=== PATIENT | male | born 1930 | race Caucasian/White ===

== ENCOUNTER 2017-04-03 11:22 | Inpatient (IN) | payer OTHER ==
[~2017-04-03] VITALS: Ht 177.8 cm; Wt 73.4 kg
[~2017-04-03 11:22] MED LIST: Coumadin Daily Dose PO; ENDOCET 5-3251 EACH PO; Lutein PO; Xalatan 0.005% Ophth BOTH EYES
[2017-04-03 11:48] LABS: HEMATOCRIT 44.7 % (38.0-50.0); HEMOGLOBIN 15.5 G/DL (12.5-16.6); MCH 30.3 PG (29.0-34.0); MCHC 34.7 G/DL (30.0-36.0); MCV 87.3 FL (86-99); PLATELET COUNT 147 K/uL (156-360); RBC DIS.WIDTH-CV 12.6 % (11.8-14.6); RBC DIS.WIDTH-SD 40.4 % (39-53); RED BLOOD COUNT 5.12 M/uL (4.00-5.50); WHITE BLOOD COUNT 6.5 K/uL (4.1-10.2)
[2017-04-03 11:55] LABS: INTER. NORMALIZED RATIO 1.1
[2017-04-03 11:56] LABS: BASOPHIL (%) 0.5 % (0-1); EOSINOPHIL (%) 0.2 % (0-5); IMMATURE GRANULOCYTE (%) 0.5 % (0.0-0.7); LYMPHOCYTE (%) 9.3 % (15-42); LYMPHOCYTE COUNT 0.6 K/uL (1.0-2.8); MONOCYTE (%) 10.3 % (3-12); MONOCYTE COUNT 0.7 K/uL (0-0.8); NEUTROPHIL (%) 79.2 % (45-76); NEUTROPHIL COUNT 5.2 K/uL (1.8-6.4)
[2017-04-03 11:58] LABS: PTT 35.2 SEC (25-37)
[2017-04-03 11:59] LABS: CHLORIDE 100 mEq/L (99-109)
[2017-04-03 12:00] LABS: POTASSIUM 4.3 mEq/L (3.7-5.4); SODIUM 135 mEq/L (136-147)
[2017-04-03 12:01] LABS: GLUCOSE 105 mg/dL (70-99)
[2017-04-03 12:05] LABS: CREATININE 0.9 mg/dL (0.6-1.3); GFR ESTIMATE (CALCULATED) > 59 mL/min/ (58.99-99999)
[2017-04-03 12:06] LABS: UREA NITROGEN (BUN) 14 mg/dL (9-23)
[2017-04-03 12:09] LABS: TROP-I INTERPRETATION NEGATIVE; TROPONIN-I 0.06 ng/mL (0.0-0.30)
[2017-04-03 18:21] VITALS: BP 159/73
[2017-04-03 18:51] LABS: TROP-I INTERPRETATION NEGATIVE; TROPONIN-I 0.06 ng/mL (0.0-0.30)
[2017-04-03 23:54] VITALS: BP 128/69
[2017-04-04 00:53] LABS: TROP-I INTERPRETATION NEGATIVE; TROPONIN-I 0.05 ng/mL (0.0-0.30)
[2017-04-04 05:07] VITALS: BP 142/84
[2017-04-04 05:49] LABS: HEMATOCRIT 40.7 % (38.0-50.0); HEMOGLOBIN 13.6 G/DL (12.5-16.6); MCHC 33.4 G/DL (30.0-36.0); MCV 86.8 FL (86-99); PLATELET COUNT 150 K/uL (156-360); RBC DIS.WIDTH-CV 12.8 % (11.8-14.6); RBC DIS.WIDTH-SD 40.3 % (39-53); RED BLOOD COUNT 4.69 M/uL (4.00-5.50); WHITE BLOOD COUNT 3.8 K/uL (4.1-10.2)
[2017-04-04 06:27] LABS: CHLORIDE 103 MEQ/L (99-109); CREATININE 0.8 MG/DL (0.6-1.3); GFR ESTIMATE (CALCULATED) > 59 mL/min/ (58.99-99999); POTASSIUM 4.1 MEQ/L (3.7-5.4); SODIUM 135 MEQ/L (136-147); UREA NITROGEN (BUN) 15 mg/dL (9-23)
[2017-04-04 06:28] LABS: GLUCOSE 194 mg/dL (70-99)
[2017-04-04 09:00] VITALS: BP 128/73
[2017-04-04 12:27] VITALS: BP 112/58
[2017-04-04 16:00] VITALS: BP 133/66
[2017-04-04 19:54] VITALS: BP 130/82
[2017-04-05 00:45] VITALS: BP 126/62
[2017-04-05 04:38] VITALS: BP 123/59
[2017-04-05 07:24] VITALS: BP 129/69
[2017-04-05] MEDS ORDERED: OSELTAMIVIR PHO75 MG PO (11:11)
[2017-04-05] MEDS ORDERED: PREDNISONE10 MG PO (11:19)
[2017-04-05] MEDS ORDERED: ZITHROMAX250 MG PO (11:19)
[2017-04-05] MEDS ORDERED: PROAIR HFA8.5 GM IH (11:19)
[2017-04-05] MEDS ORDERED: CARDIZEM CD120 M1 PO (11:20)
== END 2017-04-05 13:19 | disposition home or self-care (01) | DRG 309 ==
LOC: EME 11:22 → EDOF 13:49 → ENRESERV 13:51 → 4EAST 18:02
PROVIDERS: Emergency Medicine; Internal Medicine
DX: I48.92 Unspecified atrial flutter (principal); I47.1 Supraventricular tachycardia; J10.1 Influenza due to other identified influenza virus with other respiratory manifestations; J20.9 Acute bronchitis, unspecified; J44.0 Chronic obstructive pulmonary disease with (acute) lower respiratory infection; J44.1 Chronic obstructive pulmonary disease with (acute) exacerbation; F17.210 Nicotine dependence, cigarettes, uncomplicated; Z96.652 Presence of left artificial knee joint
CPT/HCPCS: 71046; 71275; 80048; 83605; 84484; 85025; 85027; 85610; 85730; 87502; 90686; 93005; 94640; 94640 76; 94799; 99281; 99285; J0696; J1650; J2930; J7030

== ENCOUNTER 2017-06-10 20:12 | Inpatient (IN) | payer OTHER ==
[~2017-06-10] VITALS: Ht 175.3 cm; Wt 87.5 kg
[~2017-06-10 20:12] MED LIST changes: +CARDIZEM CD120 M1 PO; +OSELTAMIVIR PHO75 MG PO; +PREDNISONE10 MG PO; +PROAIR HFA8.5 GM IH; +ZITHROMAX250 MG PO
[2017-06-10 20:51] LABS: HEMATOCRIT 42.6 % (38.0-50.0); HEMOGLOBIN 14.6 G/DL (12.5-16.6); MCH 30.2 PG (29.0-34.0); MCHC 34.3 G/DL (30.0-36.0); PLATELET COUNT 172 K/uL (156-360); RBC DIS.WIDTH-CV 13.7 % (11.8-14.6); RBC DIS.WIDTH-SD 44.1 % (39-53); RED BLOOD COUNT 4.84 M/uL (4.00-5.50); WHITE BLOOD COUNT 7.9 K/uL (4.1-10.2)
[2017-06-10 20:54] LABS: CARBON DIOXIDE (BICARBONATE) 28.8 MEQ/L (20-31)
[2017-06-10 21:03] LABS: CHLORIDE 106 mEq/L (99-109); SODIUM 142 mEq/L (136-147)
[2017-06-10 21:04] LABS: GLUCOSE 112 mg/dL (70-99)
[2017-06-10 21:08] LABS: CREATININE 0.9 mg/dL (0.6-1.3); GFR ESTIMATE (CALCULATED) > 59 mL/min/ (58.99-99999)
[2017-06-10 21:09] LABS: UREA NITROGEN (BUN) 15 mg/dL (9-23)
[2017-06-10 21:14] LABS: TROP-I INTERPRETATION NEGATIVE; TROPONIN-I 0.05 ng/mL (0.0-0.30)
[2017-06-11 01:04] VITALS: BP 170/84
[2017-06-11 03:14] VITALS: BP 140/75
[2017-06-11 07:40] VITALS: BP 128/71
[2017-06-11 11:00] VITALS: BP 130/71
[2017-06-11 16:21] VITALS: BP 147/77
[2017-06-11 19:20] VITALS: BP 135/72
[2017-06-12] VITALS (7 sets, daily range): BP systolic 126–154; BP diastolic 67–87
[2017-06-12 11:54] LABS: BASE EXCESS -2.5 mEq/L (-3 to +3); BICARBONATE 24.2 mEq/L (22-26); CARBOXY HGB 2.2 % (0-5); METHEMOGLOBIN 1.6 % (0-1.5); PCO2 48 mm Hg (35-45); PO2 98 mm Hg (80-100); pH 7.31 (7.35-7.45)
[2017-06-12 11:55] LABS: COMMENTS - BLOOD GASES A+C+; DEVICE NC; O2 FLOW 2 L/MIN; SITE RR; TOTAL RESP RATE 23 resp/min
[2017-06-12 12:14] LABS: HEMATOCRIT 42.6 % (38.0-50.0); MCH 29.4 PG (29.0-34.0); MCHC 32.9 G/DL (30.0-36.0); MCV 89.3 FL (86-99); PLATELET COUNT 174 K/uL (156-360); RBC DIS.WIDTH-CV 14.1 % (11.8-14.6); RBC DIS.WIDTH-SD 46.7 % (39-53); RED BLOOD COUNT 4.77 M/uL (4.00-5.50); WHITE BLOOD COUNT 12.2 K/uL (4.1-10.2)
[2017-06-12 12:36] LABS: TROP-I INTERPRETATION NEGATIVE; TROPONIN-I 0.05 ng/mL (0.0-0.30)
[2017-06-12 12:46] LABS: ALBUMIN 4.1 G/DL (3.2-4.8); ALKALINE PHOSPHATASE 59 IU/L (3-129); ALT (GPT) 13 IU/L (3-49); AST (GOT) 18 IU/L (2-34); CHLORIDE 106 MEQ/L (99-109); CREATININE 0.9 MG/DL (0.6-1.3); GFR ESTIMATE (CALCULATED) > 59 mL/min/ (58.99-99999); POTASSIUM 4.6 MEQ/L (3.7-5.4); SODIUM 139 MEQ/L (136-147); TOTAL BILIRUBIN 0.4 MG/DL (0.0-1.0); TOTAL PROTEIN 6.5 G/DL (6.4-8.3); UREA NITROGEN (BUN) 20 mg/dL (9-23)
[2017-06-12 12:48] LABS: GLUCOSE 186 mg/dL (70-99)
[2017-06-12 18:39] LABS: BASE EXCESS -2.9 mEq/L (-3 to +3); BICARBONATE 23.7 mEq/L (22-26); CARBOXY HGB 2.3 % (0-5); METHEMOGLOBIN 1.6 % (0-1.5); PCO2 47 mm Hg (35-45); pH 7.31 (7.35-7.45)
[2017-06-12 18:40] LABS: COMMENTS - BLOOD GASES A+C+; DEVICE NC; O2 FLOW 2 L/MIN; PO2 73 mm Hg (80-100); SITE RR
[2017-06-13] VITALS (13 sets, daily range): BP systolic 117–210; BP diastolic 65–120
[2017-06-14] VITALS (12 sets, daily range): BP systolic 131–163; BP diastolic 69–97
[2017-06-14 06:06] LABS: CHLORIDE 106 MEQ/L (99-109); GFR ESTIMATE (CALCULATED) > 59 mL/min/ (58.99-99999); GLUCOSE 151 mg/dL (70-99); POTASSIUM 4.5 MEQ/L (3.7-5.4); SODIUM 141 MEQ/L (136-147)
[2017-06-14 06:11] LABS: UREA NITROGEN (BUN) 32 mg/dL (9-23)
[2017-06-14 12:40] LABS: BASE EXCESS 1.1 mEq/L (-3 to +3); BICARBONATE 26.6 mEq/L (22-26); METHEMOGLOBIN 1.5 % (0-1.5); PCO2 45 mm Hg (35-45); PO2 88 mm Hg (80-100); pH 7.38 (7.35-7.45)
[2017-06-14 12:41] LABS: DEVICE HHFNC; O2 FLOW 30 L/MIN; SITE RR; TOTAL RESP RATE 26 resp/min
[2017-06-15 03:00] VITALS: BP 155/83
[2017-06-15 06:09] LABS: HEMATOCRIT 39.2 % (38.0-50.0); HEMOGLOBIN 12.6 G/DL (12.5-16.6); MCH 29.3 PG (29.0-34.0); MCHC 32.1 G/DL (30.0-36.0); MCV 91.2 FL (86-99); PLATELET COUNT 150 K/uL (156-360); RBC DIS.WIDTH-CV 14.2 % (11.8-14.6); RBC DIS.WIDTH-SD 48.1 % (39-53); WHITE BLOOD COUNT 6.4 K/uL (4.1-10.2)
[2017-06-15 06:34] LABS: CHLORIDE 108 MEQ/L (99-109); CREATININE 0.9 MG/DL (0.6-1.3); GFR ESTIMATE (CALCULATED) > 59 mL/min/ (58.99-99999); GLUCOSE 153 mg/dL (70-99); POTASSIUM 4.3 MEQ/L (3.7-5.4); SODIUM 143 MEQ/L (136-147); UREA NITROGEN (BUN) 30 mg/dL (9-23)
[2017-06-15 09:00] VITALS: BP 148/87
[2017-06-15 12:00] VITALS: BP 134/66
[2017-06-15 17:00] VITALS: BP 167/76
[2017-06-15 17:06] LABS: BASE EXCESS 3.5 mEq/L (-3 to +3); BICARBONATE 29.1 mEq/L (22-26); METHEMOGLOBIN 1.5 % (0-1.5); PCO2 47 mm Hg (35-45); PO2 73 mm Hg (80-100)
[2017-06-15 17:07] LABS: COMMENTS - BLOOD GASES A+C+; DEVICE NC; O2 FLOW 3.5 L/MIN; SITE RR
[2017-06-15 19:16] VITALS: BP 156/80
[2017-06-15 23:47] VITALS: BP 156/87
[2017-06-16 03:00] VITALS: BP 140/81
[2017-06-16 05:53] LABS: CHLORIDE 106 MEQ/L (99-109); CREATININE 0.9 MG/DL (0.6-1.3); GFR ESTIMATE (CALCULATED) > 59 mL/min/ (58.99-99999); GLUCOSE 196 mg/dL (70-99); POTASSIUM 4.7 MEQ/L (3.7-5.4); SODIUM 143 MEQ/L (136-147); UREA NITROGEN (BUN) 30 mg/dL (9-23)
[2017-06-16 07:59] VITALS: BP 147/69
[2017-06-16 12:15] VITALS: BP 146/76
[2017-06-16 16:15] VITALS: BP 137/74
[2017-06-16 21:00] VITALS: BP 159/91
[2017-06-17 03:28] VITALS: BP 140/75
[2017-06-17 07:13] VITALS: BP 150/76
[2017-06-17 11:08] VITALS: BP 134/84
[2017-06-17 15:40] VITALS: BP 127/65
[2017-06-17 19:00] VITALS: BP 168/70
[2017-06-17 22:24] VITALS: BP 152/91
[2017-06-18 03:53] VITALS: BP 150/84
[2017-06-18 05:13] LABS: HEMATOCRIT 43.1 % (38.0-50.0); HEMOGLOBIN 13.9 G/DL (12.5-16.6); MCH 29.2 PG (29.0-34.0); MCHC 32.3 G/DL (30.0-36.0); MCV 90.5 FL (86-99); PLATELET COUNT 157 K/uL (156-360); RBC DIS.WIDTH-CV 13.6 % (11.8-14.6); RED BLOOD COUNT 4.76 M/uL (4.00-5.50)
[2017-06-18 05:36] LABS: CHLORIDE 104 MEQ/L (99-109); CREATININE 0.9 MG/DL (0.6-1.3); GFR ESTIMATE (CALCULATED) > 59 mL/min/ (58.99-99999); GLUCOSE 144 mg/dL (70-99); POTASSIUM 4.5 MEQ/L (3.7-5.4); SODIUM 143 MEQ/L (136-147); UREA NITROGEN (BUN) 29 mg/dL (9-23)
[2017-06-18 07:00] VITALS: BP 189/86
[2017-06-18 11:26] VITALS: BP 141/65
[2017-06-18 15:27] VITALS: BP 146/84
[2017-06-18 20:14] VITALS: BP 173/79
[2017-06-18 23:48] VITALS: BP 141/89
[2017-06-19 03:09] VITALS: BP 145/82
[2017-06-19 12:02] VITALS: BP 129/65
[2017-06-19 16:45] VITALS: BP 164/73
[2017-06-20] VITALS (7 sets, daily range): BP systolic 128–191; BP diastolic 76–95
[2017-06-21 03:44] VITALS: BP 134/81
[2017-06-21 07:25] VITALS: BP 140/84
[2017-06-21 08:13] LABS: HEMATOCRIT 44.1 % (38.0-50.0); HEMOGLOBIN 14.6 G/DL (12.5-16.6); MCH 29.9 PG (29.0-34.0); MCHC 33.1 G/DL (30.0-36.0); MCV 90.2 FL (86-99); PLATELET COUNT 142 K/uL (156-360); RBC DIS.WIDTH-CV 13.5 % (11.8-14.6); RBC DIS.WIDTH-SD 45.1 % (39-53); RED BLOOD COUNT 4.89 M/uL (4.00-5.50); WHITE BLOOD COUNT 11.8 K/uL (4.1-10.2)
[2017-06-21 09:03] LABS: CHLORIDE 102 MEQ/L (99-109); CREATININE 0.7 MG/DL (0.6-1.3); GFR ESTIMATE (CALCULATED) > 59 mL/min/ (58.99-99999); GLUCOSE 107 mg/dL (70-99); POTASSIUM 4.5 MEQ/L (3.7-5.4); SODIUM 143 MEQ/L (136-147); UREA NITROGEN (BUN) 28 mg/dL (9-23)
[2017-06-21 09:46] VITALS: BP 132/89
[2017-06-21 11:02] VITALS: BP 99/69
[2017-06-21 22:37] VITALS: BP 189/91
[2017-06-21 23:08] VITALS: BP 131/91
[2017-06-22] VITALS: BP 142/82
[2017-06-22 03:00] VITALS: BP 142/82
[2017-06-22 05:58] LABS: CHLORIDE 102 MEQ/L (99-109); CREATININE 0.8 MG/DL (0.6-1.3); GFR ESTIMATE (CALCULATED) > 59 mL/min/ (58.99-99999); GLUCOSE 93 mg/dL (70-99); SODIUM 142 MEQ/L (136-147); UREA NITROGEN (BUN) 25 mg/dL (9-23)
[2017-06-22 08:05] VITALS: BP 139/88
[2017-06-22 11:40] VITALS: BP 134/64
[2017-06-22 16:08] VITALS: BP 136/75
[2017-06-22 19:54] VITALS: BP 130/74
[2017-06-23 00:25] VITALS: BP 173/76
[2017-06-23 03:20] VITALS: BP 161/65
[2017-06-23 07:36] VITALS: BP 165/81
[2017-06-23] MEDS ORDERED: DIGOXIN125 MCG PO (10:28)
[2017-06-23] MEDS ORDERED: FAMOTIDINE20 MG PO (10:28)
[2017-06-23] MEDS ORDERED: PREDNISONE20 MG PO (10:28)
[2017-06-23] MEDS ORDERED: SPIRIVA RESPIMAT4 GM IH (10:28)
[2017-06-23] MEDS ORDERED: AMOX TR-K CLV1 EAC4 PO (10:28)
[2017-06-23] MEDS ORDERED: ELIQUIS5 MG PO (10:28)
[2017-06-23] MEDS ORDERED: DILTIAZEM 24HR240 MG PO (10:28)
[2017-06-23] MEDS ORDERED: DULERA 200 MCG/13 GM IH (10:28)
[2017-06-23 11:21] VITALS: BP 143/70
== END 2017-06-23 15:50 | DRG 190 ==
LOC: EME 20:12 → EDOF 23:53 → ENRESERV 23:54 → 5WEST 06-11 00:53 → 4EAST 06-11 06:23 → 5WEST 06-12 23:11 → ENRESERV 06-12 23:13 → 4WEST 06-13 08:23 → ENRESERV 06-14 15:23 → 4EAST 06-14 18:56 → ENRESERV 06-19 12:37 → 4SOUTH 06-19 16:21 → ENRESERV 06-22 00:28 → CANRESERV 06-22 00:28 → ENPENDDIS 06-23 10:50 → 4SOUTH 06-23 15:50
PROVIDERS: Emergency Medicine; Family Medicine; Hospitalist; Nurse Practitioner Family; Physician Assistant Medical
PROC: 5A09357 Assistance with Respiratory Ventilation, Less than 24 Consecutive Hours, Continuous Positive Airway Pressure (ICD-10-PCS; principal; 2017-06-15)
DX: J44.0 Chronic obstructive pulmonary disease with (acute) lower respiratory infection (principal); J96.01 Acute respiratory failure with hypoxia; J18.9 Pneumonia, unspecified organism; J96.02 Acute respiratory failure with hypercapnia; J44.1 Chronic obstructive pulmonary disease with (acute) exacerbation; I48.0 Paroxysmal atrial fibrillation; Z96.652 Presence of left artificial knee joint; Z87.891 Personal history of nicotine dependence; I27.20 Pulmonary hypertension, unspecified; J90 Pleural effusion, not elsewhere classified; Z79.01 Long term (current) use of anticoagulants; I08.1 Rheumatic disorders of both mitral and tricuspid valves; I10 Essential (primary) hypertension; R73.9 Hyperglycemia, unspecified; T38.0X5A Adverse effect of glucocorticoids and synthetic analogues, initial encounter
CPT/HCPCS: 36600; 71045; 71046; 80048; 80053; 80202; 82565; 82803; 82948; 83605; 83880; 84484; 85027; 87040; 87070; 87205; 87449; 87502; 87641; 93005; 93306; 94640; 94640 76; 94660; 94667; 94760; 94799; 97530 GO; 97530 GP; 99281; 99285; G0378; J0692; J0696; J1160; J1644; J1815; J1885; J2060; J2405; J2543; J2920; J2930; J3370; J3475; J7030; J7050; J7512; S0028